=== PATIENT | male | born 1950 | race Caucasian/White ===

== ENCOUNTER → 2019-08-20 | Outpatient (CLI) | payer OTHER, MEDICARE ==
[~2019-08-20] MED LIST: BUSP10 PO; CITA20 PO; Daily Multiple1 EACH PO; Flomax0.4 MG PO; GABA300 PO; IBUP800 PO; METF500 PO; Prinivil10 MG PO; TRAM50 PO
[2019-08-22 01:06] LABS: HIV SCREEN 4TH GENERATION WRFX Non Reactive (Non Reactive)
[2019-08-22 03:07] LABS: HBSAG SCREEN Negative (Negative); HCV ANTIBODY >11.0 (0.0-0.9)
== END | disposition home or self-care (01) ==
LOC: LAB EV 17:38 → LAB SHORT 17:38
PROVIDERS: Family Medicine
DX: Z20.9 Contact with and (suspected) exposure to unspecified communicable disease (principal)
CPT/HCPCS: 84460; 86317; 86803; 87340; 87389

== ENCOUNTER → 2019-08-28 | Outpatient (CLI) | payer OTHER, MEDICARE ==
[2019-08-28 15:31] LABS: Alanine Aminotransfer (ALT/SGP 29 U/L (12-78); Albumin, Blood 3.7 g/dL (3.4-5.0); Albumin/Globulin Ratio 1.1 (0.8-1.8); Alk Phos 70 U/L (40-126); Anion Gap 7 mmol/L (6-16); Aspartate Aminotrans (AST/SGOT 21 U/L (12-37); Bilirubin, Total 0.4 mg/dL (0.1-1.0); Blood Urea Nitrogen 12 mg/dL (8-24); Bun/Creatinine Ratio 14.8 (12.0-20.0); CO2, Blood 30 mmol/L (21-32); Calcium, Blood 8.9 mg/dL (8.5-10.1); Chloride, Blood 103 mmol/L (98-108); Creatinine, Blood 0.81 mg/dL (0.60-1.20); Globulin, Blood 3.5 g/dL (2.2-4.0); Glomerular Filtration Rate >60 (60-); Glucose, Blood 165 mg/dL (70-99); Potassium, Blood 4.3 mmol/L (3.5-5.5); Sodium, Blood 140 mmol/L (136-145); Total Protein, Blood 7.2 g/dL (6.4-8.2)
== END | disposition home or self-care (01) ==
LOC: LAB SHORT 15:07 → LAB EV 15:07
PROVIDERS: Family Medicine
DX: B19.20 Unspecified viral hepatitis C without hepatic coma (principal)
CPT/HCPCS: 80053

== ENCOUNTER → 2019-10-30 | Outpatient (CLI) | payer OTHER, MEDICARE ==
[2019-10-31 07:07] LABS: HIV SCREEN 4TH GENERATION WRFX Non Reactive (Non Reactive)
== END | disposition home or self-care (01) ==
LOC: LAB EV 11:45 → LAB SHORT 11:45
PROVIDERS: Family Medicine
DX: Z20.9 Contact with and (suspected) exposure to unspecified communicable disease (principal)
CPT/HCPCS: 86803; 87389

== ENCOUNTER → 2020-04-03 | Outpatient (CLI) | payer OTHER, MEDICARE ==
[2020-04-04 08:10] LABS: HCV ANTIBODY >11.0 (0.0-0.9); HIV SCREEN 4TH GENERATION WRFX Non Reactive (Non Reactive)
== END | disposition home or self-care (01) ==
LOC: LAB SHORT 11:49 → LAB EV 11:49
PROVIDERS: Family Medicine
DX: Z20.9 Contact with and (suspected) exposure to unspecified communicable disease (principal)
CPT/HCPCS: 84460; 86317; 86803; 87389